=== PATIENT | female | born 1950 | race African-American/Black ===

== ENCOUNTER 2016-12-22 18:25 | Inpatient (IN) | payer OTHER, MEDICARE ==
[~2016-12-22] VITALS: Ht 165.1 cm; Wt 103.0 kg
[2016-12-22] MEDS ORDERED: IV NORMAL SALINE 1,000ML 1,000 ML IV SCH (19:15)
--- NOTE | 2016-12-22 20:36 | PHYS DOC ---
Past History Past Medical History: Diabetes, Hypertension Additional Past Medical Histor: liver cirrhosis Past Surgical History: Cholecystectomy Smoking: Non-smoker Alcohol Use: None Drug Use: None Adult General Chief Complaint Chief Complaint: NAUSEA/VOMITING/DIARRHEA HPI HPI Patient is a 66 year old female who presents with complaint of generalized weakness and muscle cramps. Patient states that yesterday she had numerous episodes of nausea and vomiting that hit her suddenly. Patient is not sure if she ate something spoiled but denies any known sick contacts. Patient states that yesterday at 2:00 in the afternoon the patient's symptoms had resolved. Patient states that she was trying to orally rehydrate herself but states that she does not feel she was able to drink enough water. Patient states that she started getting severe backaches and cramps and has had generalized weakness. Patient denies any chest pain or abdominal pain currently. Patient has had no fevers and denies any urinary complaints. Patient has not taken any medications help with her symptoms. Patient states that her cramps started in her upper back and radiates down towards her buttocks. Review of Systems Review of Systems Constitutional: Generalized weakness, denies fever or chills [] Eyes: Denies change in visual acuity, redness, or eye pain [] HENT: Denies nasal congestion or sore throat [] Respiratory: Denies cough or shortness of breath [] Cardiovascular: Denies chest pain or edema [] GI: Nausea and vomiting currently resolved, denies abdominal pain, bloody stools or diarrhea [] : Denies dysuria or hematuria [] Musculoskeletal: Muscle cramps [] Integument: Denies rash or skin lesions [] Neurologic: Denies headache, focal weakness or sensory changes [] Current Medications Current Medications Current Medications Medications (Trade) Dose Ordered Sig/[facility] Start Time Stop Time Status Last Admin Dose Admin Diazepam (Valium) 2 mg 1X ONCE 12/22/16 19:30 12/22/16 19:31 DC 12/22/16 19:40 2 MG Sodium Chloride 1,000 ml @ 1,000 mls/hr Q1H 12/22/16 19:15 12/22/16 20:14 DC 12/22/16 19:40 1,000 MLS/HR Allergies Allergies Allergies Coded Allergies Type Severity Reaction Last Updated Verified Penicillins Allergy Unknown Unknown 12/22/16 Yes Physical Exam Physical Exam Constitutional: Alert, afebrile, appears fatigued. [] HENT: Normocephalic, atraumatic, bilateral external ears normal, oropharynx dry , no oral exudates, nose normal. [] Eyes: PERRLA, EOMI, conjunctiva normal, no discharge. [] Neck: Normal range of motion, no tenderness, supple, no stridor. [] Cardiovascular:Heart rate regular rhythm, no murmur [] Lungs & Thorax: Bilateral breath sounds clear to auscultation [] Abdomen: Bowel sounds normal, soft, no tenderness, no masses, no pulsatile masses. [] Skin: Warm, dry, no erythema, no rash. [] Back: No midline tenderness to palpation, bilateral paraspinous muscle tenderness to palpation, no flank ecchymosis [] Extremities: No tenderness, no cyanosis, no clubbing, ROM intact, no edema. [] Neurologic: Alert and oriented X 3, normal motor function, normal sensory function, no focal deficits noted. [] Current Patient Data Vital Signs Vital Signs Date Time Temp Pulse Resp B/P (MAP) Pulse Ox O2 Delivery O2 Flow Rate FiO2 12/22/16 18:41 98.9 86 20 100 Lab Results Laboratory Tests Test 12/22/16 20:30 White Blood Count 10.4 x10^3/uL Red Blood Count 3.24 x10^6/uL Hemoglobin 9.7 g/dL Hematocrit 28.8 % Mean Corpuscular Volume 89 fL Mean Corpuscular Hemoglobin 30 pg Mean Corpuscular Hemoglobin Concent 34 g/dL Red Cell Distribution Width 16.3 % Platelet Count 46 x10^3/uL Neutrophils (%) (Auto) 92 % Lymphocytes (%) (Auto) 3 % Monocytes (%) (Auto) 5 % Eosinophils (%) (Auto) 0 % Basophils (%) (Auto) 0 % Neutrophils # (Auto) 9.5 x10^3uL Lymphocytes # (Auto) 0.3 x10^3/uL Monocytes # (Auto) 0.5 x10^3/uL Eosinophils # (Auto) 0.0 x10^3/uL Basophils # (Auto) 0.0 x10^3/uL Platelet Estimate Pending Sodium Level 137 mmol/L Potassium Level 3.5 mmol/L Chloride Level 103 mmol/L Carbon Dioxide Level 23 mmol/L Anion Gap 11 Blood Urea Nitrogen 45 mg/dL Creatinine 3.1 mg/dL Estimated GFR (Cockcroft-Gault) 17.6 BUN/Creatinine Ratio 14 Glucose Level 158 mg/dL Calcium Level 8.5 mg/dL Magnesium Level 1.4 mg/dL Total Bilirubin 2.0 mg/dL Aspartate Amino Transf (AST/SGOT) 24 U/L Alanine Aminotransferase (ALT/SGPT) 46 U/L Alkaline Phosphatase 82 U/L Total Protein 6.5 g/dL Albumin 2.9 g/dL Albumin/Globulin Ratio 0.8 Current Medications Medications (Trade) Dose Ordered Sig/Jevon Route PRN Reason Start Time Stop Time Status Last Admin Dose Admin Sodium Chloride 1,000 ml @ 1,000 mls/hr Q1H IV 12/22/16 19:15 12/22/16 20:14 DC 12/22/16 19:40 Diazepam (Valium) 2 mg 1X ONCE IV 12/22/16 19:30 12/22/16 19:31 DC 12/22/16 19:40 Fentanyl Citrate (Fentanyl 2ml Vial) 50 mcg PRN Q15MIN PRN IV PAIN GREATER THAN 3/10 12/22/16 21:00 12/23/16 20:59 Ondansetron HCl (Zofran) 4 mg 1X ONCE IV 12/22/16 21:00 12/22/16 21:01 DC EKG EKG Interpreted by me: Heart rate 87, sinus rhythm, normal intervals, left axis deviation, left bundle branch block, no acute ST/T-wave abnormalities present [] Radiology/Procedures Radiology/Procedures Not performed [] Course & Med Decision Making Course & Med Decision Making Pertinent Labs and Imaging studies reviewed. (See chart for details) Patient started on IV fluids, Valium, and fentanyl for symptoms. The patient was found to have acute renal failure based off of her metabolic panel. The patient continues to complain of significant pain throughout her back with cramping and patient has not been able to produce a urine sample despite IV fluid hydration. The patient will require continued IV fluids as the patient is likely experiencing complications from dehydration due to vomiting. I spoke with Dr. Tello who accepted care patient in hospital. Dragon Disclaimer Dragon Disclaimer This chart was dictated in whole or in part using Voice Recognition software in a busy, high-work load, and often noisy Emergency Department environment. It may contain unintended and wholly unrecognized errors or omissions. Departure Departure: Impression: Primary Impression: Acute renal failure (ARF) Additional Impressions: Dehydration Oliguria Disposition: 09 ADMITTED INPATIENT Admitting Physician: Mague Tello Condition: STABLE Referrals: NON,STAFF (PCP) Problem Qualifiers Primary Impression: Acute renal failure (ARF) Acute renal failure type: unspecified Qualified Codes: N17.9 - Acute kidney failure, unspecified DELFINO LEWIS MD Dec 22, 2016 20:36
[2016-12-22 20:48] LABS: BASO % 0 % (0-3); EOS % 0 % (0-3); HEMATOCRIT 28.8 % (36.0-47.0); HEMOGLOBIN 9.7 g/dL (12.0-15.5); LYMPH # 0.3 x10^3/uL (1.0-4.8); LYMPH % 3 % (24-48); MEAN CORPUSCULAR HEMOGLOBIN 30 pg (25-35); MEAN CORPUSCULAR HGB CONC 34 g/dL (31-37); MEAN CORPUSCULAR VOLUME 89 fL (79-100); MONO # 0.5 x10^3/uL (0.0-1.1); MONO % 5 % (0-9); NEUT # 9.5 x10^3uL (1.8-7.7); NEUT % 92 % (31-73); PLATELET COUNT 46 x10^3/uL (140-400); RED BLOOD COUNT 3.24 x10^6/uL (3.50-5.40); RED CELL DISTRIBUTION WIDTH 16.3 % (11.5-14.5); WHITE BLOOD COUNT 10.4 x10^3/uL (4.0-11.0)
[2016-12-22 20:58] LABS: ALBUMIN 2.9 g/dL (3.4-5.0); ALBUMIN/GLOBULIN RATIO 0.8 (1.0-1.7); CALCIUM 8.5 mg/dL (8.5-10.1); GFR 17.6; MAGNESIUM 1.4 mg/dL (1.8-2.4); POTASSIUM 3.5 mmol/L (3.5-5.1); TOTAL PROTEIN 6.5 g/dL (6.4-8.2)
[2016-12-22] MEDS ORDERED: ONDANSETRON PF 4 MG/2 ML VIAL. IV ONE (21:00)
[2016-12-22 21:06] LABS: CREATININE 3.1 mg/dL (0.6-1.0)
[2016-12-22] MEDS: fentaNYL PF 100 MCG/2 ML VIAL IV PRN ×2 (21:20→22:37)
[2016-12-22 21:53] LABS: % BANDS 30 % (0-9); % LYMPHS 4 % (24-48); % MONOS 2 % (0-10); % SEGS 64 % (35-66)
[2016-12-22 21:54] LABS: PLT ESTIMATE DECREASED (ADEQUATE)
[2016-12-22 21:57] LABS: BURR CELLS FEW
[2016-12-22 22:06] LABS: OVALOCYTES FEW
[2016-12-22 22:10] VITALS: BP 105/50
[2016-12-22] MEDS ORDERED: ONDANSETRON PF 4 MG/2 ML VIAL. IV PRN (22:30)
[2016-12-22] MEDS: IV NORMAL SALINE 1,000ML 1,000 ML IV SCH (22:37)
[2016-12-23] VITALS (15 sets, daily range): BP systolic 86–154; BP diastolic 45–86
[2016-12-23] MEDS ORDERED: SPIR50TA2 PO (00:38)
[2016-12-23] MEDS ORDERED: METF10002 PO (00:38)
[2016-12-23] MEDS ORDERED: RAMI2.5C PO (00:38)
[2016-12-23] MEDS ORDERED: PANT40TA5 PO (00:38)
[2016-12-23] MEDS ORDERED: EXEN2PEN IN (00:43)
[2016-12-23] MEDS ORDERED: INSU100I13 IN (00:43)
[2016-12-23] MEDS ORDERED: OMEG-91 PO (00:43)
[2016-12-23] MEDS ORDERED: NADO20TA PO (00:43)
[2016-12-23] MEDS ORDERED: TAUR1000 PO (00:47)
[2016-12-23] MEDS ORDERED: RANI150T6 PO (00:47)
[2016-12-23] MEDS ORDERED: VITA400C11 PO (00:50)
[2016-12-23] MEDS ORDERED: VITA1TAB3 PO (00:50)
[2016-12-23] MEDS ORDERED: ASCO500T3 PO (00:52)
[2016-12-23] MEDS ORDERED: FERR325T72 PO (00:52)
[2016-12-23] MEDS ORDERED: CHOL10003 PO (00:56)
[2016-12-23] MEDS ORDERED: CALC667C PO (00:56)
[2016-12-23] MEDS: fentaNYL PF 100 MCG/2 ML VIAL IV PRN ×2 (01:33→07:31)
--- NOTE | 2016-12-23 02:06 | ACF ---
Admission Criteria Forms RENAL FAILURE, ACUTE Clinical Indications for Admission to Inpatient Care ( Place 'X' for any and all applicable criteria): Admission is indicated for ALL (if I & II) or III of the following [A](2)(3)(4)( 5)(6)(7): [x]I. Acute renal failure as indicated by ANY ONE of the following: [x]a) A 3-fold rise in serum creatinine from baseline [ ]b) Serum creatinine greater than 4 mg/dL (354 micromoles/L) with an acute rise greater than 0.5 mg/dL (44.2 micromoles/L) [ ]c) Reduction of more than 75% in estimated glomerular filtration rate from baseline [ ]d) Estimated glomerular filtration rate less than 35 mL/min/1.73m2 (0.59mL/sec/1.73m2)in a child up to 18 years of age [ ]e) Anuria indicated by ALL of the following: [ ]i) Adequate volume status [ ]ii) Cessation of urine output indicated by ANY ONE of the following: [ ]1) Urine output less than 0.3 mL/kg/hr for 24 hours [ ]2) Anuria (urine output less than 0.1 mL/kg/ hr) for 12 hours [x] II. Renal failure cannot be managed in an outpatient setting or observational care setting as indicating by ANY ONE of the following: [ ]a) Altered mental status that is severe or persistent [ ]b) Volume overload or Respiratory distress (eg, clinically significant pulmonary edema) that is severe or persistent [ ]c) Cardiac arrhythmias of immediate concern [ ]d) Hemodynamic instability [ ]e) Clinically significant electrolyte abnormality that requires inpatient care (eg, hyperkalemia with severe ECG findings)[B] [ ]f) Clinically significant metabolic abnormality (eg, acidosis) that is severe or persistent [ ]g) Acute treatment of renal failure (eg, renal replacement therapy) not feasible or appropriate in observational care setting [ ]h) Clinical situation too unstable or uncertain (eg, inadequate urine output, ongoing decline in renal function, etiology unclear) [ ]i) Necessary support and caregiver ability to comply with outpatient treatment cannot be arranged in observation care timeframe (eg, within 24 hours) [x]j) Other significant finding or clinical condition judged not to be within scope of observation care [ ]III.General contraindications and/or Inappropriate clinical situations for Observational Care in patients with Acute Renal Failure, when ANY ONE of the following is required: [ ]a) Prediction of prolongation of LOS based on ANY ONE of the following may be considered as a contraindication for observational care 2, 3, 4, 5, 6, 7, 8 , 9, 10, 11 [ ]i) Age > 65 yrs. [ ]ii) Patient arriving by ambulance [ ]iii) Patient with high acuity [ ]iv) Patient requiring vital sign monitoring [ ]v) Patient on IV medication [ ]b) Systolic blood pressures 180mmHg 3,12 [ ]c) Patient with altered mental status including delirium and other alteration of consciousness, (3) [ ]d) Patient whose discharge disposition will be to a nursing home home or rehabilitation home should not be managed in Emergency Department Observation Unit. CMS rule requires 3 days hospital stay before such placement.3,13 [ ]e) Patient with failure to thrive due to broad array of etiologies 3, 16,17 [ ]f) Inability to ambulate 3,14 Extended stay beyond goal length of stay may be needed for(13) [ ]a) Continuing uremic complications [ ]b) Care for comorbidities [ ]c) acute renal failure [ ]d) Need for dialysis The original [employer] content created by [employer] has been revised. The portions of the content which have been revised are identified through the use of italic text or in bold, and [facility] has neither reviewed nor approved the modified material. All other unmodified content is copyright [employer]. Please see references footnoted in the original [facility] edition 2016 Admission Criteria Met?: Yes ANNMARIE CORONEL Dec 23, 2016 02:06
[2016-12-23 02:23] LABS: CLARITY,URINE HAZY; COLOR,URINE AMBER
[2016-12-23 02:24] LABS: AMORPHOUS SEDIMENT,UR PRESENT /HPF; BACTERIA,URINE MANY /HPF (0-FEW); BILIRUBIN,URINE NEG (NEG); GLUCOSE,URINE NEG (NEG); HYALINE CASTS, URINE MOD /HPF; NITRITE,URINE NEG (NEG); RBC,URINE OCC /HPF (0-2); SQUAMOUS EPITHELIAL CELL,UR MOD /LPF; UROBILINOGEN,URINE 0.2 mg/dL (0.2 mg/dL); YEAST,URINE PRESENT /HPF
[2016-12-23] MEDS: IV NORMAL SALINE 1,000ML 1,000 ML IV SCH ×2 (05:41→16:48)
[2016-12-23 06:38] LABS: BASO % 0 % (0-3); EOS # 0.1 x10^3/uL (0.0-0.7); EOS % 1 % (0-3); HEMATOCRIT 29.4 % (36.0-47.0); LYMPH # 0.1 x10^3/uL (1.0-4.8); LYMPH % 1 % (24-48); MEAN CORPUSCULAR HEMOGLOBIN 30 pg (25-35); MEAN CORPUSCULAR HGB CONC 34 g/dL (31-37); MEAN CORPUSCULAR VOLUME 88 fL (79-100); MONO # 0.2 x10^3/uL (0.0-1.1); MONO % 3 % (0-9); NEUT # 8.4 x10^3uL (1.8-7.7); NEUT % 96 % (31-73); PLATELET COUNT 54 x10^3/uL (140-400); RED BLOOD COUNT 3.33 x10^6/uL (3.50-5.40); RED CELL DISTRIBUTION WIDTH 16.2 % (11.5-14.5); WHITE BLOOD COUNT 8.8 x10^3/uL (4.0-11.0)
--- NOTE | 2016-12-23 06:46 | EKG ---
[address] [address] Test Date: 2016-12-22 Test Time: 19:38:15 Pat Name: KATIE HIGHTOWER Department: Room: Gender: F Anesthesia Attending: JUANA : 1950 Requested By: DELFINO LEWIS Order Number: [id number] Reading MD: Measurements Intervals [place] Rate: 87 P: 44 WV: 158 QRS: -46 QRSD: 134 T: 92 QT: 364 QTc: 439 Interpretive Statements SINUS RHYTHM ABNORMAL LEFT AXIS DEVIATION NON SPECIFIC INTRAVENTRICULAR BLOCK QRS(T) CONTOUR ABNORMALITY CONSIDER ANTEROSEPTAL MYOCARDIAL DAMAGE RI6.01 Unconfirmed report No previous ECG available for comparison
[2016-12-23 06:51] LABS: ALBUMIN 2.9 g/dL (3.4-5.0); ALBUMIN/GLOBULIN RATIO 0.8 (1.0-1.7); CALCIUM 8.4 mg/dL (8.5-10.1); CREATININE 2.4 mg/dL (0.6-1.0); GFR 24.5; MAGNESIUM 1.3 mg/dL (1.8-2.4); POTASSIUM 3.6 mmol/L (3.5-5.1); TOTAL BILIRUBIN 2.5 mg/dL (0.2-1.0); TOTAL PROTEIN 6.5 g/dL (6.4-8.2)
[2016-12-23] MEDS ORDERED: MAGNESIUM SULFATE 2GM 50 ML IV ONE (08:00)
[2016-12-23] MEDS ORDERED: HYDROmorphone PF 2 MG/ML VIAL IV PRN (09:30)
[2016-12-23 09:50] LABS: AMYLASE 31 U/L (25-115); LIPASE 212 U/L (73-393)
[2016-12-23] MEDS: LIDOCAINE (700MG/PATCH) PATCH. TD SCH (09:58)
[2016-12-23] MEDS: HYDROmorphone PF 1 MG/ML DISP.SYRIN IV PRN ×4 (09:59→23:43)
[2016-12-23] MEDS ORDERED: CYCLOBENZAPRINE 10 MG TABLET. PO ONE (10:10)
--- NOTE | 2016-12-23 15:41 | RAD ---
Indication renal failure, liver failure, fever, abdominal pain and distention. Axial images through the abdomen and pelvis were obtained. The study is limited. No IV or gastrointestinal contrast was administered. No prior imaging of the abdomen is available. There are increased soft tissue elements associated with the visualized lower left breast relative to the right. If mammography has not been recently performed this should be considered. Targeted ultrasound may also be useful. A mass is not excluded. There is increased density about the umbilicus. The etiology is not clear. This probably represents a ventral abdominal wall hernia. The increased density may be secondary to complication associated with the hernia or bowel. Clinical correlation as to the necessity for additional imaging advised. A focal hepatic mass is not seen. The periphery of the liver has a somewhat nodular appearance. The spleen is enlarged. The constellation of findings suggests possible cirrhosis with associated portal hypertension. Clinical correlation advised. There are clips in the gallbladder fossa. There is some slight stranding surrounding the distal sweep of the duodenum and the area of the head of the pancreas. Mild pancreatitis, isolated to the head or duodenitis is not excluded and clinical correlation as to these possibilities advised. There are a few retroperitoneal lymph nodes which are probably reactive. A few slightly larger lymph nodes are seen in the upper abdomen interposed between the gastric fundus and the area of the veronica hepatis. No adrenal masses are seen. No renal pathology is apparent. Multiple calcifications are seen in the pelvis compatible with calcified uterine fibroids. There is some slight volume loss at the lung bases likely reflecting atelectasis. IMPRESSION: Findings associated with the liver and spleen suggesting possible cirrhosis and associated portal hypertension. Slight stranding surrounding the pancreatic head and distal sweep of the duodenum suggesting either focal pancreatitis isolated to the head or duodenitis. Increased density associated with the visualized left breast. If mammography has not been recently performed this should be considered. Targeted ultrasound may also be warranted. Probable periumbilical hernia. PQRS Compliance Statement: One or more of the following individualized dose reduction techniques were utilized for this examination: 1. Automated exposure control 2. Adjustment of the mA and/or kV according to patient size 3. Use of iterative reconstruction technique
--- NOTE | 2016-12-23 16:34 | RAD ---
Ultrasound of the abdomen 12/23/2016 Clinical history: Elevated bilirubin. Technique: A real-time ultrasound examination of the abdomen was performed. Multiple images were obtained. Findings: Comparison is made to the patient's CT scan of the abdomen performed earlier today. The gallbladder is not visualized consistent with a cholecystectomy. The liver is normal in size measuring 15.6 cm in length. The liver parenchyma has a heterogeneous echogenicity and nodular contour suggestive of cirrhosis. No focal abnormality of the liver is seen. The common bile duct measures 6 mm in diameter which is within normal limits for the patient's age. The spleen is mild to moderately enlarged measuring 18.3 cm in length. The visualized portions of the pancreas is within normal limits. Both kidneys are within normal limits in size and echogenicity. The abdominal aorta tapers normally. The inferior vena cava is within normal limits. No free fluid is seen. Impression: 1. Status post cholecystectomy. 2. Findings suggestive of cirrhosis of the liver. There is mild to moderate splenomegaly.
[2016-12-23] MEDS: ALBUMIN HUMAN 25% 100 ML IV SCH (17:52)
[2016-12-23] MEDS: IV RINGERS SOLUTION,LACTATED 1,000 ML IV SCH (19:10)
--- NOTE | 2016-12-23 20:11 | HP ---
ADMIT DATE: 12/23/2016 HISTORY OF PRESENT ILLNESS: This is a 66-year-old female with nonalcoholic cirrhosis who presented to the Emergency Room complaining of generalized weakness and muscle cramps and also severe low back pain and neck pain. She was in her usual state of health 4 days ago and had a rapid onset of cramps pain and back pain. She also had nausea and vomiting and was not able to keep anything down. She did try to rehydrate herself, but was not successful. 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 It has been stable as of 11/19/2016. Other problems include diabetes, sister states lupus, osteopenia, pancreatic cyst, and hypertension. Her cirrhosis is complicated by esophageal varices without bleeding. Also, has some ascites and edema. The patient had a fever of 100.9 at home. She does not have diarrhea. MEDICATIONS: Reviewed and are available on the MAR. ALLERGIES: PENICILLINS. PAST SURGICAL HISTORY: Cholecystectomy. HOME MEDICATIONS: She has not had diarrhea. SOCIAL HISTORY: The patient still works manager [employer]. No alcohol, tobacco, or substance abuse. She is and lives with her . Her sister is with her. REVIEW OF SYSTEMS: As per HPI and also some muscle pain. OBJECTIVE: VITAL SIGNS: Blood pressure 115/71, pulse 107, respirations 22, pulse ox 95% on the 3 liters, height 65 inches, and weight 226.44 pounds. GENERAL: A 66-year-old who is having some considerable pain, which she is complaining in her back. HEENT: Her eyes moderately exophthalmic. Hearing is normal. Nose was patent. Her throat was clear. Eyes were not icteric. NECK: Tender, but no nuchal rigidity. LUNGS: Clear to auscultation. CARDIOVASCULAR: Regular rhythm and rate with a 2/6 murmur heard at the pulmonic area. ABDOMEN: Large and obese, but nontender anteriorly. Spleen as well as the liver is enlarged. She has a small umbilical hernia. EXTREMITIES: Without edema. LABORATORY DATA: Admission labs, BUN was 45 and creatinine was 3.1; this morning 47 and creatinine 2.4. Carbon dioxide is 19. Bilirubin 2.0 increased to 2.5 with a direct of 1.5. Amylase and lipase are normal. CT of the abdomen and pelvis reveal . Also, finding associated with liver and spleen suggestive cirrhosis and associated portal hypertension. Abdominal ultrasound was no mention of duct dilatation. Duct is normal size. The liver has increased a couple of centimeters as well as the spleen since the ultrasound of 11/19/2016. Lab work 11/19/2016, sent to me by the nurse practitioner from is actually fairly normal in comparison to what it is now. Urinalysis shows 5-10 white cells, but there are squamous epithelial cells and she does have urine yeast. ASSESSMENT: 1. Acute renal failure. 2. Questionable urinary tract infection. 3. Acute pancreatitis. 4. Nonalcoholic cirrhosis of the liver. 5. Hypomagnesemia, pain management. 6. Diabetes type 2. 7. Splenomegaly. 8. Hepatomegaly. PLAN: Picture of pancreatitis and we will treat as such. Discussed the case with Dr. Mejia, account engineer from recommended switching from normal saline to lactated Ringer's for less chloride and sodium content and to give her 2 days of albumin IV. We will cut back on the Dilaudid as she became a little bit over sedated with 2 mg and we will recheck her labs in the morning. JJ TURPIN DO DR: ADRIANO/sofia JOB#: [id number] / [id number]
[2016-12-23 20:56] LABS: BACTERIA,URINE MOD /HPF (0-FEW); BILIRUBIN,URINE NEG (NEG); CLARITY,URINE HAZY; GLUCOSE,URINE NEG (NEG); NITRITE,URINE NEG (NEG); SQUAMOUS EPITHELIAL CELL,UR FEW /LPF; UROBILINOGEN,URINE 2 mg/dL (0.2 mg/dL)
[2016-12-23 20:57] LABS: COLOR,URINE AMBER
[2016-12-23 20:58] LABS: AMORPHOUS SEDIMENT,UR PRESENT /HPF
[2016-12-23 20:59] LABS: HYALINE CASTS, URINE FEW /HPF
[2016-12-23] MEDS ORDERED: MEROPENEM 1 GM in IV NORMAL SALINE 100ML 100 ML IV SCH (21:00)
[2016-12-23 22:37] LABS: GRANULAR CASTS,URINE FEW /HPF
[2016-12-23] MEDS: CYCLOBENZAPRINE 10 MG TABLET. PO PRN (23:43)
[2016-12-24] VITALS (19 sets, daily range): BP systolic 93–171; BP diastolic 54–85
[2016-12-24] MEDS: HYDROmorphone PF 1 MG/ML DISP.SYRIN IV PRN ×3 (04:13→19:06)
[2016-12-24] MEDS: IV RINGERS SOLUTION,LACTATED 1,000 ML IV SCH ×2 (04:13→17:46)
[2016-12-24] MEDS: ALBUMIN HUMAN 25% 100 ML IV SCH ×2 (05:48→17:46)
[2016-12-24] MEDS: LIDOCAINE (700MG/PATCH) PATCH. TD SCH (07:54)
[2016-12-24 08:51] LABS: BASO % 0 % (0-3); EOS % 0 % (0-3); HEMATOCRIT 26.5 % (36.0-47.0); HEMOGLOBIN 8.8 g/dL (12.0-15.5); LYMPH # 0.2 x10^3/uL (1.0-4.8); LYMPH % 4 % (24-48); MEAN CORPUSCULAR HEMOGLOBIN 30 pg (25-35); MEAN CORPUSCULAR HGB CONC 33 g/dL (31-37); MEAN CORPUSCULAR VOLUME 89 fL (79-100); MONO # 0.7 x10^3/uL (0.0-1.1); MONO % 11 % (0-9); NEUT # 5.3 x10^3uL (1.8-7.7); NEUT % 85 % (31-73); PLATELET COUNT 37 x10^3/uL (140-400); RED BLOOD COUNT 2.97 x10^6/uL (3.50-5.40); RED CELL DISTRIBUTION WIDTH 16.6 % (11.5-14.5); WHITE BLOOD COUNT 6.2 x10^3/uL (4.0-11.0)
[2016-12-24 08:54] LABS: ALBUMIN 2.6 g/dL (3.4-5.0); ALBUMIN/GLOBULIN RATIO 0.8 (1.0-1.7); CALCIUM 8.1 mg/dL (8.5-10.1); CREATININE 1.8 mg/dL (0.6-1.0); GFR 34.2; POTASSIUM 3.6 mmol/L (3.5-5.1); TOTAL BILIRUBIN 2.3 mg/dL (0.2-1.0)
[2016-12-24] MEDS: CYCLOBENZAPRINE 10 MG TABLET. PO PRN (10:37)
--- NOTE | 2016-12-24 20:11 | PN ---
DATE: 12/24/2016 PROBLEMS: 1. Acute renal failure, improving. 2. Acute pancreatitis. 3. Hyperbilirubinemia and elevated direct cirrhosis of the liver. 4. Hypomagnesemia. 5. Pain management. 6. Type 2 diabetes. 7. Splenomegaly. 8. Hepatomegaly. 9. BAEZ. 10. Microcytic anemia and thrombocytopenia, which is not new. SUBJECTIVE: Doing better today. Has been somewhat sedated on the Dilaudid, although it is relieving her pain. Still having the low back pain. Remains n.p.o. for now. She has had a fairly comfortable night and has been able to rest. OBJECTIVE: VITAL SIGNS: Blood pressure 122/55, pulse 90, temperature 98.6, pulse ox 94% on 3 liters. GENERAL: She does tend to desaturate a little bit with the pain medication. Her eyes are clear. Color is good. Tongue is moist now, a little bit of thrush on her tongue. ABDOMEN: Soft, nontender. BACK: Tender in the low back. EXTREMITIES: Without edema. LABORATORY DATA: Hemoglobin is 8.8, hematocrit 26.5, suspect delusional, platelet count 37,000. BUN 46, creatinine 1.8, magnesium is 2, albumin is 2.6. Bilirubin is 2.3, slightly reduced from 2.5. PLAN: Monitor platelets. Continue the albumin. Add in clear liquids later. Continue IV fluids as everything is getting better. We will need to follow up with collar tailor in the near future. JJ TURPIN DO DR: ADRIANO/sofia JOB#: [id number] / [id number]
[2016-12-25] VITALS (12 sets, daily range): BP systolic 137–176; BP diastolic 57–90
[2016-12-25] MEDS: IV RINGERS SOLUTION,LACTATED 1,000 ML IV SCH ×3 (00:10→16:10)
[2016-12-25] MEDS: HYDROmorphone PF 1 MG/ML DISP.SYRIN IV PRN ×2 (01:12→06:33)
[2016-12-25] MEDS: ALBUMIN HUMAN 25% 100 ML IV SCH (05:15)
[2016-12-25 06:13] LABS: BASO % 0 % (0-3); EOS % 1 % (0-3); HEMATOCRIT 26.4 % (36.0-47.0); HEMOGLOBIN 8.8 g/dL (12.0-15.5); LYMPH # 0.3 x10^3/uL (1.0-4.8); LYMPH % 6 % (24-48); MEAN CORPUSCULAR HEMOGLOBIN 29 pg (25-35); MEAN CORPUSCULAR HGB CONC 34 g/dL (31-37); MEAN CORPUSCULAR VOLUME 88 fL (79-100); MONO # 0.6 x10^3/uL (0.0-1.1); MONO % 12 % (0-9); NEUT # 4.3 x10^3uL (1.8-7.7); NEUT % 81 % (31-73); PLATELET COUNT 39 x10^3/uL (140-400); RED CELL DISTRIBUTION WIDTH 16.7 % (11.5-14.5); WHITE BLOOD COUNT 5.2 x10^3/uL (4.0-11.0)
[2016-12-25 06:27] LABS: ALBUMIN 2.4 g/dL (3.4-5.0); ALBUMIN/GLOBULIN RATIO 0.7 (1.0-1.7); CALCIUM 8.2 mg/dL (8.5-10.1); CREATININE 1.1 mg/dL (0.6-1.0); GFR 60.3; MAGNESIUM 1.7 mg/dL (1.8-2.4); POTASSIUM 3.6 mmol/L (3.5-5.1); TOTAL BILIRUBIN 2.6 mg/dL (0.2-1.0); TOTAL PROTEIN 5.7 g/dL (6.4-8.2)
[2016-12-25 06:33] LABS: ALBUMIN 2.4 g/dL (3.4-5.0); DIRECT BILIRUBIN 1.9 mg/dL (0.0-0.2); TOTAL BILIRUBIN 2.7 mg/dL (0.2-1.0); TOTAL PROTEIN 5.3 g/dL (6.4-8.2)
--- NOTE | 2016-12-25 07:36 | PDOC ---
PROGRESS NOTES Diagnosis Problem Problems Medical Problems: (1) Acute renal failure (ARF) Status: Acute (2) Dehydration Status: Acute (3) Oliguria Status: Acute Assessment 1. Acute renal failure: Resolved. Likely due to N/V and dehydration. Will back off on IVF if able to increase PO intake. 2. Acute pancreatitis: Lipase was normal, but CT showed inflammation at head of pancreas. Lipase is normal today as well. Advance diet as pt has not been vomiting. 3. 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 Pt is finished w/ albumin that was recommended by hepatology at . Continue to avoid any potentially hepatotoxic medications. 4. Hypomagnesemia: Replace again. Still low. 5. Diffuse back and neck pain: Pt reports she never had this before. Started 1-2 days after her vomiting started. Dilaudid helps some but pain worse when it wears off. No weakness in her arms/legs. I will check ESR, CRP, CT of spine. Check CPK as well. 6. Type 2 diabetes: Stable. Monitor sugars as diet is advanced. 7. Chronic pancytopenia, likely due to #3. 8. DVT proph: Recommend heparin, pt is high risk for DVT. Monitor platelets closely, hold heparin if <50. 9. Severe PEM: Pt s/p albumin tx. Advance diet. 10. Fever: Previously presumed to be due to pancreatitis. Had a 102 last night. Currently on Levaquin. Check CXR. UA was neg on admission. Check BC' s. COntinue Levaquin, consider adding abx if fever worsens or signs of sepsis. There is no clinical evidence of peritonitis. I palpated pt's umbilical hernia, it is reducible and NTTP. 11. Right arm swelling: IV infiltration vs DVT. Check doppler. Problems: Plan of Care: see other orders Subjective Pt seen on rounds and d/w nursing staff. Pt had a temp of 102 last night, but is down to 99 this morning. NO more n/v. Pt would like to eat. Drinking fluid without vomiting. VOiding per foote catheter. Per nursing, right arm is swollen. Pt c/o "severe pain from neck to low back." Says it started Tuesday and isn't getting any better. Denies having had pain like this before. No blood in stool. NO diarrhea. No chest pain or SOA> Dilaudid helps pain but wears off quickly per pt. Objective Vital Signs Date Time Temp Pulse Resp B/P (MAP) Pulse Ox O2 Delivery O2 Flow Rate FiO2 12/25/16 07:03 97 Nasal Cannula 3.0 12/25/16 06:20 102 16 146/90 (108) 12/25/16 02:18 99.1 Intake and Output 12/25/16 07:00 Intake Total 1420 ml Output Total 1900 ml Balance -480 ml Intake Oral 1420 ml Output Urine Total 1900 ml Abdomen: Normal bowel sounds, Soft, No tenderness, Other (Obese, reducible umbilical hernia that is NTTP) Heart: Regular rate, Normal S1, Normal S2, Other (3/6 DENISE (known to pt)) Extremities: Other (Right arm is puffy from upper arm to wrist/hand. No redness or induration. IV in place. DP pulses are 2+bilaterally.) General: Alert, Oriented X3, Cooperative, No acute distress HEENT: Atraumatic, PERRLA, EOMI, Mucous membr. moist/pink Lungs: Clear to auscultation, Normal air movement Neck: No JVD, No thyromegaly, No LAD Neuro: Normal tone, Cranial nerves 3-12 NL Psych/Mental Status: Mental status NL Skin: No rashes, No breakdown Review of Relevant I have reviewed the following items radha (where applicable) has been applied. Labs Laboratory Tests Test 12/23/16 10:37 12/23/16 11:16 12/23/16 16:29 12/23/16 19:07 Lactic Acid Level 1.1 mmol/L (0.4-2.0) Glucose (Fingerstick) 151 mg/dL (70-99) 120 mg/dL (70-99) 124 mg/dL (70-99) Test 12/23/16 19:10 12/24/16 08:28 12/24/16 14:25 12/24/16 15:25 Urine Collection Type Unknown Urine Color Radha Urine Clarity Hazy Urine pH 5.0 Urine Specific [place] 1.020 Urine Protein 100 mg/dl (NEG-TRACE) Urine Glucose (UA) Neg mg/dL (NEG) Urine Ketones (Stick) Neg mg/dL (NEG) Urine Blood Large (NEG) Urine Nitrite Neg (NEG) Urine Bilirubin Neg (NEG) Urine Urobilinogen Dipstick 2 mg/dL (0.2 mg/dL) Urine Leukocyte Esterase Neg (NEG) Urine RBC 1-2 /HPF (0-2) Urine WBC 1-4 /HPF (0-4) Urine Squamous Epithelial Cells Few /LPF Urine Transitional Epithelial Cells Occ /LPF Urine Amorphous Sediment Present /HPF Urine Bacteria Mod /HPF (0-FEW) Urine Hyaline Casts Few /HPF Urine Granular Casts Few /HPF Urine Mucus Slight /LPF White Blood Count 6.2 x10^3/uL (4.0-11.0) Red Blood Count 2.97 x10^6/uL (3.50-5.40) Hemoglobin 8.8 g/dL (12.0-15.5) Hematocrit 26.5 % (36.0-47.0) Mean Corpuscular Volume 89 fL (79-100) Mean Corpuscular Hemoglobin 30 pg (25-35) Mean Corpuscular Hemoglobin Concent 33 g/dL (31-37) Red Cell Distribution Width 16.6 % (11.5-14.5) Platelet Count 37 x10^3/uL (140-400) Neutrophils (%) (Auto) 85 % (31-73) Lymphocytes (%) (Auto) 4 % (24-48) Monocytes (%) (Auto) 11 % (0-9) Eosinophils (%) (Auto) 0 % (0-3) Basophils (%) (Auto) 0 % (0-3) Neutrophils # (Auto) 5.3 x10^3uL (1.8-7.7) Lymphocytes # (Auto) 0.2 x10^3/uL (1.0-4.8) Monocytes # (Auto) 0.7 x10^3/uL (0.0-1.1) Eosinophils # (Auto) 0.0 x10^3/uL (0.0-0.7) Basophils # (Auto) 0.0 x10^3/uL (0.0-0.2) Sodium Level 139 mmol/L (136-145) Potassium Level 3.6 mmol/L (3.5-5.1) Chloride Level 106 mmol/L (98-107) Carbon Dioxide Level 22 mmol/L (21-32) Anion Gap 11 (6-14) Blood Urea Nitrogen 46 mg/dL (7-20) Creatinine 1.8 mg/dL (0.6-1.0) Estimated GFR (Cockcroft-Gault) 34.2 BUN/Creatinine Ratio 26 (6-20) Glucose Level 148 mg/dL (70-99) Calcium Level 8.1 mg/dL (8.5-10.1) Magnesium Level 2.0 mg/dL (1.8-2.4) Total Bilirubin 2.3 mg/dL (0.2-1.0) Aspartate Amino Transf (AST/SGOT) 29 U/L (15-37) Alanine Aminotransferase (ALT/SGPT) 34 U/L (14-59) Alkaline Phosphatase 74 U/L (46-116) Total Protein 6.0 g/dL (6.4-8.2) Albumin 2.6 g/dL (3.4-5.0) Albumin/Globulin Ratio 0.8 (1.0-1.7) Nasal Screen MRSA (PCR) Positive (Negative) Ammonia 15 mcmol/L (11-34) Test 12/25/16 06:00 White Blood Count 5.2 x10^3/uL (4.0-11.0) Red Blood Count 3.00 x10^6/uL (3.50-5.40) Hemoglobin 8.8 g/dL (12.0-15.5) Hematocrit 26.4 % (36.0-47.0) Mean Corpuscular Volume 88 fL (79-100) Mean Corpuscular Hemoglobin 29 pg (25-35) Mean Corpuscular Hemoglobin Concent 34 g/dL (31-37) Red Cell Distribution Width 16.7 % (11.5-14.5) Platelet Count 39 x10^3/uL (140-400) Neutrophils (%) (Auto) 81 % (31-73) Lymphocytes (%) (Auto) 6 % (24-48) Monocytes (%) (Auto) 12 % (0-9) Eosinophils (%) (Auto) 1 % (0-3) Basophils (%) (Auto) 0 % (0-3) Neutrophils # (Auto) 4.3 x10^3uL (1.8-7.7) Lymphocytes # (Auto) 0.3 x10^3/uL (1.0-4.8) Monocytes # (Auto) 0.6 x10^3/uL (0.0-1.1) Eosinophils # (Auto) 0.0 x10^3/uL (0.0-0.7) Basophils # (Auto) 0.0 x10^3/uL (0.0-0.2) Sodium Level 135 mmol/L (136-145) Potassium Level 3.6 mmol/L (3.5-5.1) Chloride Level 104 mmol/L (98-107) Carbon Dioxide Level 23 mmol/L (21-32) Anion Gap 8 (6-14) Blood Urea Nitrogen 31 mg/dL (7-20) Creatinine 1.1 mg/dL (0.6-1.0) Estimated GFR (Cockcroft-Gault) 60.3 BUN/Creatinine Ratio 28 (6-20) Glucose Level 149 mg/dL (70-99) Calcium Level 8.2 mg/dL (8.5-10.1) Magnesium Level 1.7 mg/dL (1.8-2.4) Total Bilirubin 2.7 mg/dL (0.2-1.0) Direct Bilirubin 1.9 mg/dL (0.0-0.2) Aspartate Amino Transf (AST/SGOT) 25 U/L (15-37) Alanine Aminotransferase (ALT/SGPT) 31 U/L (14-59) Alkaline Phosphatase 75 U/L (46-116) Total Protein 5.3 g/dL (6.4-8.2) Albumin 2.4 g/dL (3.4-5.0) Albumin/Globulin Ratio 0.7 (1.0-1.7) Amylase Level 40 U/L (25-115) Lipase 342 U/L (73-393) Medications Current Medications Sodium Chloride 1,000 ml @ 1,000 mls/hr Q1H IV Last administered on 12/22/16 19:40; Start 12/22/16 at 19:15; Stop 12/22/16 at 20:14; Status DC Diazepam (Valium) 2 mg 1X ONCE IV Last administered on 12/22/16 19:40; Start 12/22/16 at 19:30; Stop 12/22/16 at 19:31; Status DC Fentanyl Citrate (Fentanyl 2ml Vial) 50 mcg PRN Q15MIN PRN IV PAIN GREATER THAN 3/10 Last administered on 12/23/16 07:31; Start 12/22/16 at 21:00; Stop 03/01 at 20:59; Status DC Ondansetron HCl (Zofran) 4 mg 1X ONCE IV Last administered on 12/22/16 21:20; Start 12/22/16 at 21:00; Stop 12/22/16 at 21:01; Status DC Ondansetron HCl (Zofran) 4 mg PRN Q6HRS PRN IV NAUSEA/VOMITING; Start 12/22/16 at 22:30 Sodium Chloride 1,000 ml @ 125 mls/hr Q8H IV Last administered on 12/23/16 16 :48; Start 12/22/16 at 22:30; Stop 12/23/16 at 19:11; Status DC Magnesium Sulfate 50 ml @ 25 mls/hr 1X ONCE IV Last administered on 12/23/16 08:03; Start 12/23/16 at 08:00; Stop 12/23/16 at 09:59; Status DC Lidocaine (Lidoderm) 1 patch DAILY TD Last administered on 12/24/16 07:54; Start 12/23/16 at 10:00 Hydromorphone HCl (Dilaudid) 1 mg PRN Q2HR PRN IV PAIN Last administered on 06:33; Start 12/23/16 at 09:30 Hydromorphone HCl (Dilaudid) 2 mg PRN Q2HR PRN IV PAIN Last administered on 14:17; Start 12/23/16 at 09:30; Stop 12/23/16 at 19:20; Status DC Cyclobenzaprine HCl (Flexeril) 10 mg PRN Q6HRS PRN PO MUSCLE SPASMS Last administered on 12/24/16 10:37; Start 12/23/16 at 09:45 Cyclobenzaprine HCl (Flexeril) 10 mg 1X ONCE PO Last administered on 09:56; Start 12/23/16 at 10:10; Stop 12/23/16 at 10:11; Status DC Levofloxacin/ Dextrose 100 ml @ 100 mls/hr Q24H IV Last administered on 11:11; Start 12/23/16 at 11:00; Stop 12/23/16 at 15:59; Status DC Meropenem 1 gm/ Sodium Chloride 100 ml @ 200 mls/hr Q12HR IV ; Start 12/23/16 at 21:00; Stop 12/23/16 at 21:00; Status DC Lactated Ringer's 1,000 ml @ 125 mls/hr Q8H IV Last administered on 12/24/16 17:46; Start 12/23/16 at 17:45 Albumin Human 100 ml @ 60 mls/hr [id number] IV Last administered on 12/25/16 05:15 ; Start 12/23/16 at 18:00; Stop 12/25/16 at 17:59 Dopamine HCl/ Dextrose 250 ml @ 19.258 mls/ hr CONT PRN IV SEE I/O RECORD; Start 12/24/16 at 00:15 Levofloxacin/ Dextrose 100 ml @ 100 mls/hr 1X ONCE IV Last administered on 21:15; Start 12/24/16 at 21:00; Stop 12/24/16 at 21:59; Status DC Levofloxacin/ Dextrose 50 ml @ 50 mls/hr Q24H IV ; Start 12/25/16 at 21:00 Active Scripts Active Reported Vitamin D3 (Cholecalciferol (Vitamin D3)) 1,000 Unit Tablet 2,000 Unit PO DAILY LAST DOSE GIVEN: DATE: TIME: NEXT DOSE DUE: DATE: TIME: Calcium Acetate 667 Mg Capsule 1,334 Mg PO TIDWMEALS LAST DOSE GIVEN: DATE: TIME: NEXT DOSE DUE: DATE: TIME: Ascorbic Acid 500 Mg Tablet 500 Mg PO BIDWMEALS LAST DOSE GIVEN: DATE: TIME: NEXT DOSE DUE: DATE: TIME: Feosol (Ferrous Sulfate) 325 Mg Tablet 325 Mg PO BIDWMEALS LAST DOSE GIVEN: DATE: TIME: NEXT DOSE DUE: DATE: TIME: Vitamin E 400 Unit Capsule 800 Unit PO DAILY LAST DOSE GIVEN: DATE: TIME: NEXT DOSE DUE: DATE: TIME: Vitamin B Complex 1 Each Tablet 1 Tab PO DAILY LAST DOSE GIVEN: DATE: TIME: NEXT DOSE DUE: DATE: TIME: Nicho Taurine (Taurine) 1,000 Mg Capsule 1,000 Mg PO DAILY LAST DOSE GIVEN: DATE: TIME: NEXT DOSE DUE: DATE: TIME: Zantac (Ranitidine Hcl) 150 Mg Tablet 150 Mg PO DAILY LAST DOSE GIVEN: DATE: TIME: NEXT DOSE DUE: DATE: TIME: Bydureon Pen (Exenatide Microspheres) 2 Mg/0.65 Ml Pen.injctr 1 Syr IN WEEKLY LAST DOSE GIVEN: DATE: TIME: NEXT DOSE DUE: DATE: TIME: [place]-3 Acid Ethyl Esters 1 Gm Capsule 1 Cap PO BIDWMEALS LAST DOSE GIVEN: DATE: TIME: NEXT DOSE DUE: DATE: TIME: Lantus Solostar (Insulin Glargine,Hum.rec.anlog) 100 Unit/1 Ml Insuln.pen 40 Units IN HS LAST DOSE GIVEN: DATE: TIME: NEXT DOSE DUE: DATE: TIME: Nadolol 20 Mg Tablet 20 Mg PO DAILY LAST DOSE GIVEN: DATE: TIME: NEXT DOSE DUE: DATE: TIME: Metformin Hcl 1,000 Mg Tablet 1,000 Mg PO BIDWMEALS LAST DOSE GIVEN: DATE: TIME: NEXT DOSE DUE: DATE: TIME: Spironolactone 50 Mg Tablet 50 Mg PO [id number] LAST DOSE GIVEN: DATE: TIME: NEXT DOSE DUE: DATE: TIME: Ramipril 2.5 Mg Capsule 2.5 Mg PO DAILY LAST DOSE GIVEN: DATE: TIME: NEXT DOSE DUE: DATE: TIME: Pantoprazole Sodium 40 Mg Tablet.dr 40 Mg PO DAILY LAST DOSE GIVEN: DATE: TIME: NEXT DOSE DUE: DATE: TIME: Vitals/I & O Vital Sign - Last 24 Hours 12/24/16 12/24/16 12/24/16 12/24/16 07:53 08:00 08:30 09:30 Temp 98.8 Pulse 94 86 Resp 16 16 B/P (MAP) 124/55 (78) 131/68 (89) Pulse Ox 94 94 O2 Delivery Nasal Cannula Nasal Cannula Nasal Cannula O2 Flow Rate 3.0 3.0 3.0 12/24/16 12/24/16 12/24/16 12/24/16 10:30 11:00 11:10 11:28 Temp 99.0 Pulse 84 Resp 18 20 B/P (MAP) 134/65 (88) Pulse Ox 96 94 O2 Delivery Nasal Cannula Nasal Cannula Nasal Cannula O2 Flow Rate 3.0 3.0 3.0 12/24/16 12/24/16 12/24/16 12/24/16 11:30 12:30 16:00 16:00 Pulse 90 90 94 Resp 20 20 20 B/P (MAP) 131/72 (91) 162/72 (102) 114/54 (74) Pulse Ox 95 94 O2 Delivery Nasal Cannula Nasal Cannula Nasal Cannula O2 Flow Rate 3.0 3.0 3.0 12/24/16 12/24/16 12/24/16 12/24/16 16:12 19:06 19:15 19:33 Temp 101.1 102.6 Pulse 99 Resp 20 B/P (MAP) 151/64 (93) Pulse Ox 94 100 O2 Delivery Nasal Cannula Nasal Cannula O2 Flow Rate 3.0 3.0 12/24/16 12/24/16 12/24/16 12/24/16 20:00 20:44 21:14 22:14 Temp 99.6 Pulse 97 94 Resp 20 17 B/P (MAP) 140/59 (86) 150/57 (88) Pulse Ox 98 99 O2 Delivery Nasal Cannula Nasal Cannula Nasal Cannula O2 Flow Rate 3.0 3.0 3.0 12/24/16 12/25/16 12/25/16 12/25/16 23:14 00:01 00:14 01:12 Pulse 90 94 Resp 16 19 B/P (MAP) 158/63 (94) 163/63 (96) Pulse Ox 99 98 99 O2 Delivery Nasal Cannula Nasal Cannula Nasal Cannula Nasal Cannula O2 Flow Rate 3.0 3.0 3.0 3.0 12/25/16 12/25/16 12/25/16 12/25/16 01:14 02:14 02:18 03:14 Temp 99.1 Pulse 91 93 96 Resp 16 16 16 B/P (MAP) 149/66 (93) 141/57 (85) 152/63 (92) Pulse Ox 98 98 97 O2 Delivery Nasal Cannula Nasal Cannula Nasal Cannula O2 Flow Rate 3.0 3.0 3.0 12/25/16 12/25/16 12/25/16 12/25/16 05:14 06:20 06:33 07:03 Pulse 98 102 Resp 16 16 B/P (MAP) 137/60 (85) 146/90 (108) Pulse Ox 97 96 97 97 O2 Delivery Nasal Cannula Nasal Cannula Nasal Cannula Nasal Cannula O2 Flow Rate 3.0 3.0 3.0 3.0 Intake and Output 12/24/16 12/24/16 12/25/16 15:00 23:00 07:00 Intake Total 520 ml 900 ml Output Total 800 ml 1100 ml Balance -280 ml -200 ml CORNELIO CONWAY MD Dec 25, 2016 07:35
[2016-12-25 08:19] LABS: C REACTIVE PROTEIN 201.7 mg/L (0-3.3)
[2016-12-25] MEDS: CYCLOBENZAPRINE 10 MG TABLET. PO PRN ×2 (08:55→16:40)
[2016-12-25] MEDS: LIDOCAINE (700MG/PATCH) PATCH. TD SCH (08:56)
[2016-12-25] MEDS ORDERED: HEPARIN PF for SUB-Q USE 5,000 UNIT/0.5 ML VIAL. SQ SCH (09:00)
--- NOTE | 2016-12-25 09:57 | RAD ---
Right upper extremity venous duplex study 12/25/2016 Clinical history: Right arm swelling since last evening. Technique: Using a combination of real-time ultrasound imaging and color-flow and pulse Doppler imaging techniques, duplex evaluation of the major venous structures of the right upper extremity was performed. Multiple images were obtained. Findings: There is no sonographic evidence of venous thrombosis involving the visualized venous structures of the right upper extremity. The right internal jugular and right subclavian veins are patent. Impression: Negative study.
[2016-12-25 10:12] LABS: % ATYL 1 % (0-0); % BANDS 8 % (0-9); % BASOS 0 % (0-3); % EOS 0 % (0-5); % LYMPHS 8 % (24-48); % MONOS 7 % (0-10); % SEGS 76 % (35-66); PLT ESTIMATE DECREASED (ADEQUATE)
--- NOTE | 2016-12-25 11:22 | RAD ---
CT scan of the cervical spine without contrast 12/25/2016 Clinical history: Severe neck pain. Technique: Unenhanced, contiguous, 0.625 mm axial sections were obtained through the cervical spine. 3 mm reconstructed sagittal, axial, and and coronal images were obtained. One or more of the following individualized dose reduction techniques were utilized for this study: 1. Automated exposure control. 2. Adjustment of the mA and/or kV according to patient size. 3. Use of iterative reconstruction technique. Findings: Sagittal and coronal reconstructed images demonstrate mild lateral curvature of the cervical spine convex to the right. There is straightening of the normal cervical lordosis. Mild anterolisthesis of C3 in relation to C4 is noted. Mild to moderate anterolisthesis of C4 in relation to C5 is seen. Degenerative changes consisting of vertebral endplate sclerosis and minimal to mild anterior vertebral body osteophyte formation are seen throughout the cervical disc spaces. Disc space narrowing is seen involving the C5-6 and C6-7 disc spaces. No fracture or subluxation of the cervical vertebrae is identified. Degenerative changes are seen involving the uncovertebral and facet joints throughout the cervical disc spaces. No significant central spinal canal stenosis is seen. No neural foraminal stenosis is seen. Impression: Degenerative changes are seen throughout the cervical spine as outlined above. No acute osseous abnormality is seen.
--- NOTE | 2016-12-25 11:29 | RAD ---
CT scan of the thoracic and lumbar spine without contrast 12/25/2016 Clinical history: Mid and low back pain. Technique: Unenhanced, contiguous, 0.625 mm axial sections were obtained through the thoracic and lumbar spine. 3 mm axial, sagittal and coronal reconstructed images were obtained. One or more of the following individualized dose reduction techniques were utilized for this study: 1. Automated exposure control. 2. Adjustment of the mA and/or kV according to patient size. 3. Use of iterative reconstruction technique. Findings: Sagittal and coronal reconstructed images demonstrate mild S-shaped curvature of the thoracolumbar spine. Degenerative changes are seen throughout the thoracic and lumbar disc spaces consisting of varying degrees of disc space narrowing, vertebral endplate sclerosis and mild to moderate anterior and posterior vertebral body osteophyte formation. Scattered atherosclerotic plaque formation is seen involving the thoracic aorta abdominal aorta and their branches. There are small bilateral pleural effusions. Dependent atelectasis is seen involving both lungs. No fracture or subluxation of the thoracic or lumbar vertebrae is seen. Degenerative changes are seen involving the facet joints of the mid and lower thoracic spine. No definite significant central spinal canal or neural foraminal stenosis is seen involving the thoracic spine. The changes of degenerative disc disease are seen involving the mid and lower lumbar spine. These consist of mild to moderate generalized disc bulges, degenerative changes involving the facet joints and mild ligamentum flavum hypertrophy. These findings result in mild bilateral neural foraminal stenosis at L5-S1. Impression: Degenerative changes are seen involving the thoracic and lumbar spine as outlined above. No acute osseous abnormality is seen.
--- NOTE | 2016-12-25 13:10 | RAD ---
AP portable chest radiograph 12/25/2016 Clinical History: Fever and weakness. An AP portable erect digital radiograph of the chest was obtained. No previous studies are available for comparison. The cardiac silhouette is mildly enlarged. Atherosclerotic calcification of the thoracic aorta is seen. The thoracic aorta is mildly tortuous. No acute pulmonary infiltrate is seen. No pneumothorax or pleural effusion is noted. Degenerative changes are seen involving the thoracic spine and both shoulders. Impression: No acute pulmonary infiltrate is seen.
--- NOTE | 2016-12-25 15:47 | DISCH ---
DISCHARGE INSTRUCTIONS-DC Condition on Discharge Condition on Discharge: Stable Problems: Activity after Discharge Activity Instructions for Disc: Bedrest today Diet after Discharge Diet after Discharge: Nik Contacting the DR. after DC Call your doctor for: Concerns you may have Treatment/Equipment after DC Discharge Respiratory Equipmen: Oxygen CORNELIO CNOWAY MD Dec 25, 2016 15:47
--- NOTE | 2016-12-25 15:57 | PDOC3 ---
Discharge Summary Discharge Summary Date of Admission Date of Admission: Dec 22, 2016 at 21:23 Admitting Diagnosis Pancreatitis Cirrhosis Moderate-severe PEM Acute renal failure due to dehydration Date of Discharge: Dec 25, 2016 Discharge Diagnosis Pancreatitis Cirrhosis Moderate-severe PEM Acute renal failure due to dehydration Severe back pain (new onset) Fever of unknown origin Laboratory Findings Laboratory Tests Test 12/22/16 01:35 12/22/16 20:30 12/22/16 22:31 12/23/16 06:00 Urine Collection Type Unknown Urine Color Radha Urine Clarity Hazy Urine pH 5.5 Urine Specific [place] 1.015 Urine Protein 100 mg/dl (NEG-TRACE) Urine Glucose (UA) Neg mg/dL (NEG) Urine Ketones (Stick) Neg mg/dL (NEG) Urine Blood Mod (NEG) Urine Nitrite Neg (NEG) Urine Bilirubin Neg (NEG) Urine Urobilinogen Dipstick 0.2 mg/dL (0.2 mg/dL) Urine Leukocyte Esterase Neg (NEG) Urine RBC Occ /HPF (0-2) Urine WBC 5-10 /HPF (0-4) Urine Squamous Epithelial Cells Mod /LPF Urine Amorphous Sediment Present /HPF Urine Bacteria Many /HPF (0-FEW) Urine Hyaline Casts Mod /HPF Urine Yeast Present /HPF White Blood Count 10.4 x10^3/uL (4.0-11.0) 8.8 x10^3/uL (4.0-11.0) Red Blood Count 3.24 x10^6/uL (3.50-5.40) 3.33 x10^6/uL (3.50-5.40) Hemoglobin 9.7 g/dL (12.0-15.5) 10.0 g/dL (12.0-15.5) Hematocrit 28.8 % (36.0-47.0) 29.4 % (36.0-47.0) Mean Corpuscular Volume 89 fL (79-100) 88 fL (79-100) Mean Corpuscular Hemoglobin 30 pg (25-35) 30 pg (25-35) Mean Corpuscular Hemoglobin Concent 34 g/dL (31-37) 34 g/dL (31-37) Red Cell Distribution Width 16.3 % (11.5-14.5) 16.2 % (11.5-14.5) Platelet Count 46 x10^3/uL (140-400) 54 x10^3/uL (140-400) Neutrophils (%) (Auto) 92 % (31-73) 96 % (31-73) Lymphocytes (%) (Auto) 3 % (24-48) 1 % (24-48) Monocytes (%) (Auto) 5 % (0-9) 3 % (0-9) Eosinophils (%) (Auto) 0 % (0-3) 1 % (0-3) Basophils (%) (Auto) 0 % (0-3) 0 % (0-3) Neutrophils # (Auto) 9.5 x10^3uL (1.8-7.7) 8.4 x10^3uL (1.8-7.7) Lymphocytes # (Auto) 0.3 x10^3/uL (1.0-4.8) 0.1 x10^3/uL (1.0-4.8) Monocytes # (Auto) 0.5 x10^3/uL (0.0-1.1) 0.2 x10^3/uL (0.0-1.1) Eosinophils # (Auto) 0.0 x10^3/uL (0.0-0.7) 0.1 x10^3/uL (0.0-0.7) Basophils # (Auto) 0.0 x10^3/uL (0.0-0.2) 0.0 x10^3/uL (0.0-0.2) Segmented Neutrophils % 64 % (35-66) Band Neutrophils % 30 % (0-9) Lymphocytes % 4 % (24-48) Monocytes % 2 % (0-10) Platelet Estimate Decreased (ADEQUATE) Ovalocytes Few Sheng Cells Few Sodium Level 137 mmol/L (136-145) 138 mmol/L (136-145) Potassium Level 3.5 mmol/L (3.5-5.1) 3.6 mmol/L (3.5-5.1) Chloride Level 103 mmol/L (98-107) 104 mmol/L (98-107) Carbon Dioxide Level 23 mmol/L (21-32) 19 mmol/L (21-32) Anion Gap 11 (6-14) 15 (6-14) Blood Urea Nitrogen 45 mg/dL (7-20) 47 mg/dL (7-20) Creatinine 3.1 mg/dL (0.6-1.0) 2.4 mg/dL (0.6-1.0) Estimated GFR (Cockcroft-Gault) 17.6 24.5 BUN/Creatinine Ratio 14 (6-20) 20 (6-20) Glucose Level 158 mg/dL (70-99) 144 mg/dL (70-99) Calcium Level 8.5 mg/dL (8.5-10.1) 8.4 mg/dL (8.5-10.1) Magnesium Level 1.4 mg/dL (1.8-2.4) 1.3 mg/dL (1.8-2.4) Total Bilirubin 2.0 mg/dL (0.2-1.0) 2.5 mg/dL (0.2-1.0) Aspartate Amino Transf (AST/SGOT) 24 U/L (15-37) 26 U/L (15-37) Alanine Aminotransferase (ALT/SGPT) 46 U/L (14-59) 43 U/L (14-59) Alkaline Phosphatase 82 U/L (46-116) 83 U/L (46-116) Total Protein 6.5 g/dL (6.4-8.2) 6.5 g/dL (6.4-8.2) Albumin 2.9 g/dL (3.4-5.0) 2.9 g/dL (3.4-5.0) Albumin/Globulin Ratio 0.8 (1.0-1.7) 0.8 (1.0-1.7) Glucose (Fingerstick) 130 mg/dL (70-99) Direct Bilirubin 1.5 mg/dL (0.0-0.2) Triglycerides Level 109 mg/dL (0-150) Amylase Level 31 U/L (25-115) Lipase 212 U/L (73-393) Test 12/23/16 07:20 12/23/16 10:37 12/23/16 11:16 12/23/16 16:29 Glucose (Fingerstick) 150 mg/dL (70-99) 151 mg/dL (70-99) 120 mg/dL (70-99) Lactic Acid Level 1.1 mmol/L (0.4-2.0) Test 12/23/16 19:07 12/23/16 19:10 12/24/16 08:28 12/24/16 14:25 Glucose (Fingerstick) 124 mg/dL (70-99) Urine Collection Type Unknown Urine Color Ardha Urine Clarity Hazy Urine pH 5.0 Urine Specific [place] 1.020 Urine Protein 100 mg/dl (NEG-TRACE) Urine Glucose (UA) Neg mg/dL (NEG) Urine Ketones (Stick) Neg mg/dL (NEG) Urine Blood Large (NEG) Urine Nitrite Neg (NEG) Urine Bilirubin Neg (NEG) Urine Urobilinogen Dipstick 2 mg/dL (0.2 mg/dL) Urine Leukocyte Esterase Neg (NEG) Urine RBC 1-2 /HPF (0-2) Urine WBC 1-4 /HPF (0-4) Urine Squamous Epithelial Cells Few /LPF Urine Transitional Epithelial Cells Occ /LPF Urine Amorphous Sediment Present /HPF Urine Bacteria Mod /HPF (0-FEW) Urine Hyaline Casts Few /HPF Urine Granular Casts Few /HPF Urine Mucus Slight /LPF White Blood Count 6.2 x10^3/uL (4.0-11.0) Red Blood Count 2.97 x10^6/uL (3.50-5.40) Hemoglobin 8.8 g/dL (12.0-15.5) Hematocrit 26.5 % (36.0-47.0) Mean Corpuscular Volume 89 fL (79-100) Mean Corpuscular Hemoglobin 30 pg (25-35) Mean Corpuscular Hemoglobin Concent 33 g/dL (31-37) Red Cell Distribution Width 16.6 % (11.5-14.5) Platelet Count 37 x10^3/uL (140-400) Neutrophils (%) (Auto) 85 % (31-73) Lymphocytes (%) (Auto) 4 % (24-48) Monocytes (%) (Auto) 11 % (0-9) Eosinophils (%) (Auto) 0 % (0-3) Basophils (%) (Auto) 0 % (0-3) Neutrophils # (Auto) 5.3 x10^3uL (1.8-7.7) Lymphocytes # (Auto) 0.2 x10^3/uL (1.0-4.8) Monocytes # (Auto) 0.7 x10^3/uL (0.0-1.1) Eosinophils # (Auto) 0.0 x10^3/uL (0.0-0.7) Basophils # (Auto) 0.0 x10^3/uL (0.0-0.2) Sodium Level 139 mmol/L (136-145) Potassium Level 3.6 mmol/L (3.5-5.1) Chloride Level 106 mmol/L (98-107) Carbon Dioxide Level 22 mmol/L (21-32) Anion Gap 11 (6-14) Blood Urea Nitrogen 46 mg/dL (7-20) Creatinine 1.8 mg/dL (0.6-1.0) Estimated GFR (Cockcroft-Gault) 34.2 BUN/Creatinine Ratio 26 (6-20) Glucose Level 148 mg/dL (70-99) Calcium Level 8.1 mg/dL (8.5-10.1) Magnesium Level 2.0 mg/dL (1.8-2.4) Total Bilirubin 2.3 mg/dL (0.2-1.0) Aspartate Amino Transf (AST/SGOT) 29 U/L (15-37) Alanine Aminotransferase (ALT/SGPT) 34 U/L (14-59) Alkaline Phosphatase 74 U/L (46-116) Total Protein 6.0 g/dL (6.4-8.2) Albumin 2.6 g/dL (3.4-5.0) Albumin/Globulin Ratio 0.8 (1.0-1.7) Nasal Screen MRSA (PCR) Positive (Negative) Test 12/24/16 15:25 12/25/16 06:00 Ammonia 15 mcmol/L (11-34) White Blood Count 5.2 x10^3/uL (4.0-11.0) Red Blood Count 3.00 x10^6/uL (3.50-5.40) Hemoglobin 8.8 g/dL (12.0-15.5) Hematocrit 26.4 % (36.0-47.0) Mean Corpuscular Volume 88 fL (79-100) Mean Corpuscular Hemoglobin 29 pg (25-35) Mean Corpuscular Hemoglobin Concent 34 g/dL (31-37) Red Cell Distribution Width 16.7 % (11.5-14.5) Platelet Count 39 x10^3/uL (140-400) Neutrophils (%) (Auto) 81 % (31-73) Lymphocytes (%) (Auto) 6 % (24-48) Monocytes (%) (Auto) 12 % (0-9) Eosinophils (%) (Auto) 1 % (0-3) Basophils (%) (Auto) 0 % (0-3) Neutrophils # (Auto) 4.3 x10^3uL (1.8-7.7) Lymphocytes # (Auto) 0.3 x10^3/uL (1.0-4.8) Monocytes # (Auto) 0.6 x10^3/uL (0.0-1.1) Eosinophils # (Auto) 0.0 x10^3/uL (0.0-0.7) Basophils # (Auto) 0.0 x10^3/uL (0.0-0.2) Segmented Neutrophils % 76 % (35-66) Band Neutrophils % 8 % (0-9) Lymphocytes % 8 % (24-48) Atypical Lymphocytes % (Manual) 1 % (0-0) Monocytes % 7 % (0-10) Eosinophils % 0 % (0-5) Basophils % 0 % (0-3) Platelet Estimate Decreased (ADEQUATE) Crenated Cell Present Erythrocyte Sedimentation Rate 45 (0-25) Sodium Level 135 mmol/L (136-145) Potassium Level 3.6 mmol/L (3.5-5.1) Chloride Level 104 mmol/L (98-107) Carbon Dioxide Level 23 mmol/L (21-32) Anion Gap 8 (6-14) Blood Urea Nitrogen 31 mg/dL (7-20) Creatinine 1.1 mg/dL (0.6-1.0) Estimated GFR (Cockcroft-Gault) 60.3 BUN/Creatinine Ratio 28 (6-20) Glucose Level 149 mg/dL (70-99) Calcium Level 8.2 mg/dL (8.5-10.1) Magnesium Level 1.7 mg/dL (1.8-2.4) Total Bilirubin 2.7 mg/dL (0.2-1.0) Direct Bilirubin 1.9 mg/dL (0.0-0.2) Aspartate Amino Transf (AST/SGOT) 25 U/L (15-37) Alanine Aminotransferase (ALT/SGPT) 31 U/L (14-59) Alkaline Phosphatase 75 U/L (46-116) Creatine Kinase 133 U/L (26-192) C-Reactive Protein 201.7 mg/L (0-3.3) Total Protein 5.3 g/dL (6.4-8.2) Albumin 2.4 g/dL (3.4-5.0) Albumin/Globulin Ratio 0.7 (1.0-1.7) Amylase Level 40 U/L (25-115) Lipase 342 U/L (73-393) Hospital Course Pt was admitted on 12/22 through the ER. She had apparently been having nausea and vomiting. Minimal abdominal pain. She was noted to be in acute renal failure and had CT findings of mild pancreatic or duodenal inflammation, though her lipase was normal. She was treated w/ IVF and bowel rest, and her renal function improved from a creat of 3.5 to 1.1 today. SHe continued to have a foote catheter for accurate output monitoring. She also continued to spike fevers as high as 102, often during the night. She was on Levaquin, but UA was negative x 2 for infection, blood cultures were attempted today but were unable to get 2nd due to lack of IV access. CXR performed today was neg for infection , and CT scans of her spine were negative for acute abnormalities as well. Venous doppler of her RUE was negative for abscess or DVT. Her abdomen was soft on today's exam, and the umbilical hernia is soft and easily reduced. Her ESR and CRP were both markedly elevated today, though etiology is unclear. We attempted to have a PICC line placed and were unsuccessful. Pt's family requested a transfer to where her other doctors practice. I spoke to the triage nurse on the transfer line, and pt was accepted by Dr. Yang. Condition at Discharge: Stable Home Meds Reported Medications Cholecalciferol (Vitamin D3) (VITAMIN D3) 1,000 Unit Tablet, 2000 UNIT PO DAILY for Supplement LAST DOSE GIVEN: DATE: TIME: NEXT DOSE DUE: DATE: TIME: 12/23/16 Calcium Acetate (CALCIUM ACETATE) 667 Mg Capsule, 1334 MG PO TIDWMEALS for Supplement LAST DOSE GIVEN: DATE: TIME: NEXT DOSE DUE: DATE: TIME: 12/23/16 Ascorbic Acid (ASCORBIC ACID) 500 Mg Tablet, 500 MG PO BIDWMEALS for Supplement LAST DOSE GIVEN: DATE: TIME: NEXT DOSE DUE: DATE: TIME: 12/23/16 Ferrous Sulfate (FEOSOL) 325 Mg Tablet, 325 MG PO BIDWMEALS for Iron Supplement LAST DOSE GIVEN: DATE: TIME: NEXT DOSE DUE: DATE: TIME: 12/23/16 Vitamin E (VITAMIN E) 400 Unit Capsule, 800 UNIT PO DAILY for Supplement LAST DOSE GIVEN: DATE: TIME: NEXT DOSE DUE: DATE: TIME: 12/23/16 Vitamin B Complex (VITAMIN B COMPLEX) 1 Each Tablet, 1 TAB PO DAILY for Supplement LAST DOSE GIVEN: DATE: TIME: NEXT DOSE DUE: DATE: TIME: 12/23/16 Taurine (STORM TAURINE) 1,000 Mg Capsule, 1000 MG PO DAILY for Supplement LAST DOSE GIVEN: DATE: TIME: NEXT DOSE DUE: DATE: TIME: 12/23/16 Ranitidine Hcl (ZANTAC) 150 Mg Tablet, 150 MG PO DAILY for GERD LAST DOSE GIVEN: DATE: TIME: NEXT DOSE DUE: DATE: TIME: 12/23/16 Exenatide Microspheres (Bydureon Pen) 2 Mg/0.65 Ml Pen.injctr, 1 SYR IN WEEKLY for Diabetes LAST DOSE GIVEN: DATE: TIME: NEXT DOSE DUE: DATE: TIME: 12/23/16 [place]-3 Acid Ethyl Esters ([place]-3 Acid Ethyl Esters) 1 Gm Capsule, 1 CAP PO BIDWMEALS for Heart Health LAST DOSE GIVEN: DATE: TIME: NEXT DOSE DUE: DATE: TIME: 12/23/16 Insulin Glargine,Hum.rec.anlog (LANTUS SOLOSTAR) 100 Unit/1 Ml Insuln.pen, 40 UNITS IN HS for Diabetes LAST DOSE GIVEN: DATE: TIME: NEXT DOSE DUE: DATE: TIME: 12/23/16 Nadolol (NADOLOL) 20 Mg Tablet, 20 MG PO DAILY for Hypertension LAST DOSE GIVEN: DATE: TIME: NEXT DOSE DUE: DATE: TIME: 12/23/16 Metformin Hcl (METFORMIN HCL) 1,000 Mg Tablet, 1000 MG PO BIDWMEALS for Diabetes LAST DOSE GIVEN: DATE: TIME: NEXT DOSE DUE: DATE: TIME: 12/23/16 Spironolactone (SPIRONOLACTONE) 50 Mg Tablet, 50 MG PO [id number] for Fluid retention LAST DOSE GIVEN: DATE: TIME: NEXT DOSE DUE: DATE: TIME: 12/23/16 Ramipril (RAMIPRIL) 2.5 Mg Capsule, 2.5 MG PO DAILY for Hypertension LAST DOSE GIVEN: DATE: TIME: NEXT DOSE DUE: DATE: TIME: 12/23/16 Pantoprazole Sodium (PANTOPRAZOLE SODIUM) 40 Mg Tablet.dr, 40 MG PO DAILY for GERD LAST DOSE GIVEN: DATE: TIME: NEXT DOSE DUE: DATE: TIME: 12/23/16 Inpatient Meds Current Medications Sodium Chloride 1,000 ml @ 1,000 mls/hr Q1H IV Last administered on 12/22/16 19:40; Start 12/22/16 at 19:15; Stop 12/22/16 at 20:14; Status DC Diazepam (Valium) 2 mg 1X ONCE IV Last administered on 12/22/16 19:40; Start 12/22/16 at 19:30; Stop 12/22/16 at 19:31; Status DC Fentanyl Citrate (Fentanyl 2ml Vial) 50 mcg PRN Q15MIN PRN IV PAIN GREATER THAN 3/10 Last administered on 12/23/16 07:31; Start 12/22/16 at 21:00; Stop 03/01 at 20:59; Status DC Ondansetron HCl (Zofran) 4 mg 1X ONCE IV Last administered on 12/22/16 21:20; Start 12/22/16 at 21:00; Stop 12/22/16 at 21:01; Status DC Ondansetron HCl (Zofran) 4 mg PRN Q6HRS PRN IV NAUSEA/VOMITING; Start 12/22/16 at 22:30 Sodium Chloride 1,000 ml @ 125 mls/hr Q8H IV Last administered on 12/23/16 16 :48; Start 12/22/16 at 22:30; Stop 12/23/16 at 19:11; Status DC Magnesium Sulfate 50 ml @ 25 mls/hr 1X ONCE IV Last administered on 12/23/16 08:03; Start 12/23/16 at 08:00; Stop 12/23/16 at 09:59; Status DC Lidocaine (Lidoderm) 1 patch DAILY TD Last administered on 12/25/16 08:56; Start 12/23/16 at 10:00 Hydromorphone HCl (Dilaudid) 1 mg PRN Q2HR PRN IV PAIN Last administered on 06:33; Start 12/23/16 at 09:30 Hydromorphone HCl (Dilaudid) 2 mg PRN Q2HR PRN IV PAIN Last administered on 14:17; Start 12/23/16 at 09:30; Stop 12/23/16 at 19:20; Status DC Cyclobenzaprine HCl (Flexeril) 10 mg PRN Q6HRS PRN PO MUSCLE SPASMS Last administered on 12/25/16 08:55; Start 12/23/16 at 09:45 Cyclobenzaprine HCl (Flexeril) 10 mg 1X ONCE PO Last administered on 09:56; Start 12/23/16 at 10:10; Stop 12/23/16 at 10:11; Status DC Levofloxacin/ Dextrose 100 ml @ 100 mls/hr Q24H IV Last administered on 11:11; Start 12/23/16 at 11:00; Stop 12/23/16 at 15:59; Status DC Meropenem 1 gm/ Sodium Chloride 100 ml @ 200 mls/hr Q12HR IV ; Start 12/23/16 at 21:00; Stop 12/23/16 at 21:00; Status DC Lactated Ringer's 1,000 ml @ 125 mls/hr Q8H IV Last administered on 12/24/16 17:46; Start 12/23/16 at 17:45 Albumin Human 100 ml @ 60 mls/hr [id number] IV Last administered on 12/25/16 05:15 ; Start 12/23/16 at 18:00; Stop 12/25/16 at 17:59 Dopamine HCl/ Dextrose 250 ml @ 19.258 mls/ hr CONT PRN IV SEE I/O RECORD; Start 12/24/16 at 00:15 Levofloxacin/ Dextrose 100 ml @ 100 mls/hr 1X ONCE IV Last administered on 21:15; Start 12/24/16 at 21:00; Stop 12/24/16 at 21:59; Status DC Levofloxacin/ Dextrose 50 ml @ 50 mls/hr Q24H IV ; Start 12/25/16 at 21:00 Heparin Sodium (Porcine) 5,000 unit Q12HR SQ ; Start 12/25/16 at 09:00; Stop 05/01 at 09:00; Status DC Active Scripts Active Reported Vitamin D3 (Cholecalciferol (Vitamin D3)) 1,000 Unit Tablet 2,000 Unit PO DAILY LAST DOSE GIVEN: DATE: TIME: NEXT DOSE DUE: DATE: TIME: Calcium Acetate 667 Mg Capsule 1,334 Mg PO TIDWMEALS LAST DOSE GIVEN: DATE: TIME: NEXT DOSE DUE: DATE: TIME: Ascorbic Acid 500 Mg Tablet 500 Mg PO BIDWMEALS LAST DOSE GIVEN: DATE: TIME: NEXT DOSE DUE: DATE: TIME: Feosol (Ferrous Sulfate) 325 Mg Tablet 325 Mg PO BIDWMEALS LAST DOSE GIVEN: DATE: TIME: NEXT DOSE DUE: DATE: TIME: Vitamin E 400 Unit Capsule 800 Unit PO DAILY LAST DOSE GIVEN: DATE: TIME: NEXT DOSE DUE: DATE: TIME: Vitamin B Complex 1 Each Tablet 1 Tab PO DAILY LAST DOSE GIVEN: DATE: TIME: NEXT DOSE DUE: DATE: TIME: Storm Taurine (Taurine) 1,000 Mg Capsule 1,000 Mg PO DAILY LAST DOSE GIVEN: DATE: TIME: NEXT DOSE DUE: DATE: TIME: Zantac (Ranitidine Hcl) 150 Mg Tablet 150 Mg PO DAILY LAST DOSE GIVEN: DATE: TIME: NEXT DOSE DUE: DATE: TIME: Bydureon Pen (Exenatide Microspheres) 2 Mg/0.65 Ml Pen.injctr 1 Syr IN WEEKLY LAST DOSE GIVEN: DATE: TIME: NEXT DOSE DUE: DATE: TIME: [place]-3 Acid Ethyl Esters 1 Gm Capsule 1 Cap PO BIDWMEALS LAST DOSE GIVEN: DATE: TIME: NEXT DOSE DUE: DATE: TIME: Lantus Solostar (Insulin Glargine,Hum.rec.anlog) 100 Unit/1 Ml Insuln.pen 40 Units IN HS LAST DOSE GIVEN: DATE: TIME: NEXT DOSE DUE: DATE: TIME: Nadolol 20 Mg Tablet 20 Mg PO DAILY LAST DOSE GIVEN: DATE: TIME: NEXT DOSE DUE: DATE: TIME: Metformin Hcl 1,000 Mg Tablet 1,000 Mg PO BIDWMEALS LAST DOSE GIVEN: DATE: TIME: NEXT DOSE DUE: DATE: TIME: Spironolactone 50 Mg Tablet 50 Mg PO [id number] LAST DOSE GIVEN: DATE: TIME: NEXT DOSE DUE: DATE: TIME: Ramipril 2.5 Mg Capsule 2.5 Mg PO DAILY LAST DOSE GIVEN: DATE: TIME: NEXT DOSE DUE: DATE: TIME: Pantoprazole Sodium 40 Mg Tablet.dr 40 Mg PO DAILY LAST DOSE GIVEN: DATE: TIME: NEXT DOSE DUE: DATE: TIME: Activity: bed rest Diet: other ([place]) Follow-up Plan F/u with PCP after discharge CORNELIO CONWAY MD Dec 25, 2016 15:57
== END 2016-12-25 16:52 | disposition short-term general hospital (02) | DRG 438 ==
LOC: ER 18:25 → EEVIPCON 21:23 → 1 SOUTH 21:23 → ICU 12-23 17:30
PROVIDERS: ADMIT Family Medicine; ATTEND Family Medicine
DX: K85.90 Acute pancreatitis without necrosis or infection, unspecified (principal); E43 Unspecified severe protein-calorie malnutrition; N17.0 Acute kidney failure with tubular necrosis; R65.11 Systemic inflammatory response syndrome (SIRS) of non-infectious origin with acute organ dysfunction; D61.818 Other pancytopenia; D50.9 Iron deficiency anemia, unspecified; E11.9 Type 2 diabetes mellitus without complications; E83.42 Hypomagnesemia; E86.0 Dehydration; I10 Essential (primary) hypertension; K42.9 Umbilical hernia without obstruction or gangrene; K74.60 Unspecified cirrhosis of liver; E66.9 Obesity, unspecified; M54.5 Low back pain; K75.81 Nonalcoholic steatohepatitis (NASH); M79.89 Other specified soft tissue disorders; R50.9 Fever, unspecified; R16.0 Hepatomegaly, not elsewhere classified; R16.1 Splenomegaly, not elsewhere classified; Z90.49 Acquired absence of other specified parts of digestive tract; Z88.0 Allergy status to penicillin; Z68.37 Body mass index [BMI] 37.0-37.9, adult
CPT/HCPCS: 36415; 36569; 71010; 72125; 72128; 72131; 74176; 76700; 80053; 80076; 81001; 82140; 82150; 82248; 82550; 82947; 83605; 83690; 83735; 84478; 85007; 85025; 85027; 85651; 86140; 87040; 87086; 87205; 87641; 93005; 93971; 96361; 96374; 96375; J1170; J1956; J2405; J3010; J3475; J7120; P9046; 97110; 99285-25; J7030

== ENCOUNTER → 2020-05-19 | Outpatient (CLI) | payer MEDICARE, OTHER ==
[2016-12-25 16:54] VITALS: BP 176/70
[~2020-05-19] MED LIST: ASCO500T3 PO; CALC667C PO; CHOL10003 PO; EXEN2PEN IN; FERR325T72 PO; INSU100I13 IN; METF10007 PO; NADO20TA2 PO; OMEG-206 PO; PANT40TA6 PO; RAMI2.5C41 PO; RANI-376 PO; SPIR50TA4 PO; TAUR1000 PO; VITA1TAB3 PO; VITA400C11 PO
--- NOTE | 2020-05-21 10:28 | RAD ---
EXAM: Bilateral digital screening mammogram. HISTORY: 69-year-old female presents for screening mammography. TECHNIQUE: Full-field digital craniocaudal and mediolateral oblique images of both breasts are obtain ed for evaluation. Computer aided detection was applied. COMPARISON: 09/26/2018 and 05/07/2016 BREAST PARENCHYMAL DENSITY: Level C - Heterogeneously dense. FINDINGS: There is no new suspicious mass, microcalcification or region of architectural distortion. There are multiple stable areas of nodularity and asymmetry within both breasts. There are multiple b enign scattered and clustered calcifications which are stable in appearance or demonstrate and increa sing benign appearance. This includes a a loose cluster of microcalcifications or grouped microcalcif ication within the medial left breast compared to prior studies. IMPRESSION: BI-RADS Category 2: Benign finding(s). RECOMMENDATION: Annual mammography is recommended. If your mammogram demonstrates that you have dense breast tissue, which could hide abnormalities, and if you have other risk factors for breast cancer that have been identified, you might benefit from s upplemental screening tests that may be suggested by your ordering physician. Dense breast tissue, i n and of itself, is a relatively common condition. This information is not provided to cause undue c oncern, but rather to raise your awareness and to promote discussion with your physician regarding th e presence of other risk factors, in addition to dense breast tissue. A report of your mammography re sults will be sent to you and your physician. You should contact your physician if you have any ques tions or concerns regarding this report. Mammography is a sensitive method for finding small breast cancers, but it does not detect them all a nd is not a substitute for careful clinical examination. A negative mammogram does not negate a clin ically suspicious finding and should not result in delay in biopsying a clinically suspicious abnorma lity. PQRS compliance statement - Patient information was entered into a reminder system with a target due date for the next mammogram. "Our facility is accredited by the [employer] Mammography [employer]." Electronically signed by: Kim Ramsey MD (05/21/2020 10:26 AM) [id number]
== END ==
LOC: MAMMO 08:00
PROVIDERS: ATTEND Family Medicine
DX: Z12.31 Encounter for screening mammogram for malignant neoplasm of breast (principal)
CPT/HCPCS: 77067

== ENCOUNTER → 2021-05-25 | Outpatient (CLI) | payer MEDICARE ==
[2016-12-25 16:54] VITALS: BP 176/70
--- NOTE | 2021-05-27 13:03 | RAD ---
Digital bilateral screening mammogram with tomography dated 05/25/2021. INDICATION: 71 years of age asymptomatic female patient presents for screening mammography. Screening TECHNIQUE: Full field craniocaudal and mediolateral oblique images of both breasts were obtained usi ng digital technique with tomosynthesis and also analyzed with computer-aided detection software. . COMPARISON: 05/19/2020 09/26/2018. BREAST COMPOSITION: Category C: The breast tissue is heterogeneously dense, which could obscure detec tion of small masses. FINDINGS: No suspicious mass or clustered microcalcification. Parenchymal pattern is stable. No architectural d istortion. There are some circumscribed nodules bilaterally, unchanged. IMPRESSION: Stable bilateral mammogram. RECOMMENDATION: Annual screening mammography is recommended, unless clinically indicated sooner based on symptoms or change in physical exam. BIRADS 2: BENIGN This study was interpreted with the benefit of Computerized Aided Detection (CAD). Recommend follow-up screening exam in one year. Patient information is entered into the reminder system with a target due date for the next screening mammogram. Mammography is the most sensitive method for finding small breast cancers, but it does not detect the m all and is not a substitute for careful clinical examination. A negative mammogram does not negate a clinically suspicious finding and should not result in delay in biopsying a clinically suspicious a bnormality. "Our facility is accredited by the [employer] Mammography [employer]." Electronically signed by: Jomar Chowdary MD (05/27/2021 1:00 PM) [id number]
== END ==
LOC: MAMMO 10:14
PROVIDERS: ATTEND Family Medicine
DX: Z12.31 Encounter for screening mammogram for malignant neoplasm of breast (principal)
CPT/HCPCS: 77063; 77067